=== PATIENT | male | born 1960 | race Caucasian/White ===

== ENCOUNTER 2024-10-03 06:00 | Day surgery (SDC) | payer OTHER, SELFPAY ==
[2024-09-05 12:45] VITALS: BMI 38.9
[2024-09-05 13:01] LABS: Hematocrit 42.9 % (39.0-52.0); Hemoglobin 14.4 g/dL (13.0-18.0); Mean Corp Hgb Conc. 33.6 g/dL (33.0-37.0); Mean Corpuscular Hgb 29.8 pg (27.0-31.0); Mean Corpuscular Volume 88.8 fL (80.0-94.0); Mean Platelet Volume 10.6 fL (7.4-10.4); Platelet Count 239 10^3/uL (130-400); Red Blood Cell Count 4.83 10^6/uL (4.70-6.10); Red Cell Dist. Width 13.4 % (11.5-14.5); White Blood Cell Count 6.1 10^3/uL (4.8-10.8)
[2024-09-05 13:32] LABS: ALT (SGPT) 26 U/L (0-50); AST (SGOT) 23 U/L (17-59); Albumin 4.8 g/dl (3.5-5.0); Alkaline Phosphatase 75 U/L (38-126); Blood Urea Nitrogen 16 mg/dl (9-20); Carbon Dioxide 27 mmol/L (22-30); Chloride 103 mmol/L (98-107); Estimated Creatinine Clearance 93 ml/min; Glucose 100 mg/dl (70-99); Potassium 4.8 mmol/L (3.5-5.1); Sodium 139 mmol/L (135-145); Total Bilirubin 0.8 mg/dl (0.2-1.3); eGFR > 60.00
[2024-09-05 13:34] LABS: Glycohemoglobin (HgbA1c) 5.3 % (4.0-5.6)
[2024-09-05 14:11] VITALS: BMI 38.9
--- NOTE | 2024-09-19 11:47 | VNURNOTE ---
Patient is scheduled for an elective L JOSE ALEJANDRO on 10/03/24 - he is a same day patient with Dr Bernardo . Spoke with patient prior to surgery. Introduced role of [facility] Liaison. Patient reports that he lives with his in a MULTI story home.
There are 2 steps to enter and a flight of steps to the second floor.
There is a powder room on the entry level finance. He currently functions independently. He has a raised toilet seat, hip kit, cane and rolling walker.
PCP is Dr Genaro Joseph.
Discussed [facility] joint protocol and post surgical plans.
Reviewed that he will have VN services initially and will then start outpatient PT.
Patient selects [facility] for his home care needs and is currently deciding on a facility for outpatient PT. No start date yet. Advised him to check with his insurance and schedule outpt PT for beginning of week of October 07. Patient verbalized
understanding.
Patient is in agreement with plan and states that his will be home with him. Advised to bring RW with him day of surgery. Referral placed in [facility].
Plan: [facility] VN per [facility] joint protocol on 10/03 then outpt PT TBD
[2024-10-03] VITALS (22 sets, daily range): BP systolic 72–131; BP diastolic 45–100; PULSE 65; O2SAT 98; BMI 38.9
[2024-10-03] MEDS: NORMOSOL-R/PLASMALYTE-A 1000 IV (06:44)
[2024-10-03] MEDS: TYLENOL 650 MG PO (06:44)
[2024-10-03] MEDS: CELEBREX 200 MG PO (06:44)
--- NOTE | 2024-10-03 07:29 | W.DS.TRANS ---
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
-
Discharge Instructions:
Discharge Diagnosis/Procedures L JOSE ALEJANDRO 10/03/24
Diet As tolerated
Activity With Walker
Additional Activity Adequate hydration, minimize Oxy and wear TEDs
stockings to prevent low blood pressure/
dizziness
Driving Restrictions No driving
Bathing Restrictions OK to Shower
Other Services PT
Instructions:
Stand-Alone Forms: SDS Total Hip and Knee D/C
Changes to Home Medications: Yes
Discharge Medications:
DC Medications w/original date entered in [employer]
atorvastatin 20 mg tablet 20 mg PO DAILY 09/04/24
levothyroxine 100 mcg tablet 100 mcg PO DAILY 09/04/24
meloxicam 15 mg tablet 15 mg PO DAILY 09/04/24
multivit,Ca,min-iron 8 mg-folic acid 200 mcg-lycopene 600 mcg tablet (Centrum Men) 1 tab PO DAILY 09/04/24
omega 1-kal-hhg-fish oil 1,600 mg-500 mg-800 mg/5 mL oral liquid (Fish Oil) 5 ml PO DAILY 09/04/24
semaglutide (weight loss) 0.25 mg/0.5 mL subcutaneous pen injector (Wegovy) 0.25 mg SC QWEEK 09/04/24
tadalafil 5 mg tablet 5 mg PO DAILY 09/04/24
tamsulosin 0.4 mg capsule 0.8 mg PO HS 09/04/24
cefadroxil 500 mg capsule 500 mg PO BID infection prevention #14 caps 09/05/24
dexamethasone 4 mg tablet 4 mg PO BID inflammation #6 tabs 09/05/24
gabapentin 300 mg capsule 300 mg PO HS sleep/pain #10 caps 09/05/24
mupirocin 2 % topical ointment 1 applic topical BID infection prevention #1 tube 09/05/24
ondansetron 4 mg disintegrating tablet 4 mg PO Q6H PRN n/v #20 tabs 09/05/24
oxycodone 5 mg tablet 5 mg PO Q6H PRN 1 tab moderate pain, 2 tabs severe pain #30 tabs 09/05/24
Saccharomyces boulardii 250 mg capsule (Florastor) 250 mg PO BID #1 cap 10/03/24
acetaminophen 500 mg tablet 1,000 mg (2 x 500 mg) PO QID #0 tabs 10/03/24
aspirin 325 mg tablet 325 mg PO DAILY blood clot prevention #1 tab 10/03/24
docusate sodium 100 mg capsule (Colace) 100 mg PO BID stool softner #1 cap 10/03/24
hydrochlorothiazide 12.5 mg capsule 12.5 mg PO DAILY #0 caps 10/03/24
lisinopril 20 mg tablet 20 mg PO DAILY #0 tabs 10/03/24
magnesium hydroxide 400 mg/5 mL oral suspension (Milk of Magnesia) 30 ml PO HS PRN constipation #1 mL 10/03/24
sennosides 8.6 mg tablet (Senokot) 17.2 mg (2 x 8.6 mg) PO BID laxative #2 tabs 10/03/24
Home Medication Changes
cefadroxil 500 mg capsule 500 mg PO BID infection prevention #14 caps 09/05/24
dexamethasone 4 mg tablet 4 mg PO BID inflammation #6 tabs 09/05/24
gabapentin 300 mg capsule 300 mg PO HS sleep/pain #10 caps 09/05/24
mupirocin 2 % topical ointment 1 applic topical BID infection prevention #1 tube 09/05/24
ondansetron 4 mg disintegrating tablet 4 mg PO Q6H PRN n/v #20 tabs 09/05/24
oxycodone 5 mg tablet 5 mg PO Q6H PRN 1 tab moderate pain, 2 tabs severe pain #30 tabs 09/05/24
Saccharomyces boulardii 250 mg capsule (Florastor) 250 mg PO BID #1 cap 10/03/24
acetaminophen 500 mg tablet 1,000 mg (2 x 500 mg) PO QID #0 tabs 10/03/24
aspirin 325 mg tablet 325 mg PO DAILY blood clot prevention #1 tab 10/03/24
docusate sodium 100 mg capsule (Colace) 100 mg PO BID stool softner #1 cap 10/03/24
hydrochlorothiazide 12.5 mg capsule 12.5 mg PO DAILY #0 caps 10/03/24 -PARAMETER
lisinopril 20 mg tablet 20 mg PO DAILY #0 tabs 10/03/24 -PARAMETER
magnesium hydroxide 400 mg/5 mL oral suspension (Milk of Magnesia) 30 ml PO HS PRN constipation #1 mL 10/03/24
sennosides 8.6 mg tablet (Senokot) 17.2 mg (2 x 8.6 mg) PO BID laxative #2 tabs 10/03/24
Pending Results: No
[2024-10-03] MEDS: NORMOSOL-R/PLASMALYTE-A 500 IV (09:30)
[2024-10-03] MEDS: ANCEF 5 IV (11:35)
[2024-10-03] MEDS: TYLENOL 1000 MG PO (14:44)
--- NOTE | 2024-10-03 17:15 | OR.RPT ---
Operative Report
Operative Report
Orthopaedic Surgery Operative Note
DATE OF OPERATION: 10/03/2024
PREOPERATIVE DIAGNOSES: Osteoarthritis, left hip
POSTOPERATIVE DIAGNOSES: Same
OPERATION PERFORMED: Left total hip arthroplasty (13742 with 22 modifier).
SURGEON: Mundo Bernardo MD
WAREHOUSE ENGINEER: Miguelito Scott PA-C who helped with patient and limb positioning and retraction
ANESTHESIA: Spinal
COMPLICATIONS: None.
ESTIMATED BLOOD LOSS: 50 mL.
DRAINS: None
SPECIMEN: None
FINDINGS: Advanced articular cartilage wear on the femoral head and acetabulum.
IMPLANTS:
Biomet G7 Acetabular Shell, cluster hole, size 56
Biomet G7 Highly Crosslinked PE Liner, neutral
Jaylin Acetabular bone screw, 6.5mm x1
Jaylin M/L Taper femoral stem, size 15 with standard neck length and standard offset
Biolox Ceramic Head, size 40mm -3.5
INDICATIONS: The patient presented to my office with debilitating left hip pain due to osteoarthritis. We reviewed the natural history of this problem, as well as the risks, benefits, and alternatives of various treatment options. The patient
exhausted all nonoperative treatment options and wished to proceed with hip replacement surgery. The patient understood the risks which included, but were not limited to, bleeding, infection, failure to relieve pain, more pain than preop, damage to
blood vessels and nerves, need for reoperation, mechanical failure of the implants, wound healing problems, stiffness, instability, blood clot, pulmonary embolism, myocardial infarction, pneumonia, arrhythmia, CVA, and . The patient accepted
these risks and wished to proceed. All questions were answered, and informed consent was obtained.
PROCEDURE IN DETAIL: The patient was identified in the preoperative holding area. The left hip was identified as the operative site. The patient was taken in the operating room and transferred to the operative table. Spinal/General anesthesia
was performed. IV antibiotics and tranexamic acid were administered. The patient was placed in the lateral position with Stulberg hip positioners. Axillary roll was placed. The down leg was well padded. All bony prominences were well padded. The
operative limb was prepped and draped in the usual sterile fashion.
Time out was performed. A posterolateral approach to the hip was used. The skin incision was centered over the greater trochanter. This was taken down sharply through subcutaneous tissues. Meticulous hemostasis was achieved throughout the case with
electrocautery. We split the fascia arthur in line with skin incision. I split the gluteus taryn bluntly. We cauterized all crossing vessels as we split it. I palpated the sciatic nerve and made sure it was well posterior in the operative field. It
was protected throughout the case.
I performed a partial bursectomy to identify the short external rotators. The gluteus medius and minimus were identified and retracted anteriorly. I incised the piriformis tendon and conjoint tendon at their insertions. These were tagged for later
repair. I then performed a trapezoidal capsulotomy. The edges were tagged for later repair. I referenced the cut edge of the capsular flap to 2 fixed points on the greater trochanter for assistance with recreation of limb length and offset. I then
dislocated the hip posteriorly. I performed a femoral neck osteotomy approximately 10 mm above the lesser trochanter, as per preoperative templating. The femoral head measured 51 mm in outer diameter. The distance between the neck cut and center of
the femoral head was measured to be 37.5mm. I placed a curve hohmann retractor over the anterior lip of the acetabulum between the labrum and the anterior hip capsule. A second retractor was placed inferiorly just distal to the transverse acetabular
ligament. Circumferential view of the acetabulum was achieved. I incised the labrum and pulvinar with electrocautery. I started with a 51 mm reamer and reamed down to the medial wall. I then sequentially reamed up to a 55mm reamer. This gave a nice
bed of bleeding bone with excellent column support anteriorly and posteriorly. I impacted the acetabular shell in approximately 40 degrees of abduction and 20 degrees of anteversion. I matched the anteversion of the transverse acetabular ligament. I
also made sure that the anterior rim of the socket was not proud of the anterior wall to minimize the chance of iliopsoas tendinitis. I confirmed the cup was well-seated. I placed 1 ileal screws in the posterior superior quadrant. I then impacted a
neutral liner and confirmed it was well seated with the locking mechanism.
On the femoral side, I use a box osteotome to open the proximal starting point. I found the canal with a Charnley awl and a lateralizing reamer. I then used the Jaylin M/L taper broaches sequentially to prepare the femoral canal. The size 15 came to
a stop at the desired level and had excellent axial and rotational stability. We trialed with a trial ball head. The hip was taken through a complete range of motion. It was noted to be stable in extension without impingement. It was stable in the
position of sleep and in flexion with internal rotation. The limb length and offset were checked compared to the capsular flap and was appropriate. The measured length between the lesser trochanter and center of the femoral head was 40mm.
I removed the trials. I impacted the femoral implant to match the [place] version. It had excellent axial and rotational stability. Trial ball head was placed, and I reduced the hip and took the hip through a complete range of motion. There was no
impingement in external rotation and extension. Position of sleep was stable. At 90 degrees of flexion and slight adduction, the hip could be internally rotated to 90 degrees with no subluxation. I palpated the sciatic nerve, which was tension free
and unharmed. Based on our capsular flap measurement, we had restored the offset and leg length. The trial ball head was removed, and the final ball head was impacted onto a clean and dry Mai taper. The hip was reduced.
A dilute betadine soak was performed for approximately 3 minutes, and then the hip was copiously irrigated. I repaired the capsule, piriformis, and conjoint tendon with #2 Ethibond to drill holes in the greater trochanter. Local anesthetic was
injected. The fascia arthur was closed with #1 PDS in running fashion. The subcutaneous tissues were closed with 2-0 PDS in running fashion. The skin was reapproximated with 3-0 Monocryl subcuticular suture. I placed a Prineo dressing followed by a
Mepilex Ag dressing. The patient awoke from anesthesia without difficulty. Sponge and instrument counts were correct x2 at the end of the case.
I was present and participated in the entire procedure. I checked leg length at the ankles after transfer on the bed which was equal. The patient was sent to the recovery room in stable condition.
Note, 22 modifier was added for complexity due to BMI >35kg/m2 which added about 20 additional minutes for positioning, exposure, and implanting the components.
Roberto Bernardo MD
== END 2024-10-03 15:24 | disposition home or self-care (01) ==
LOC: SDS 06:00
PROVIDERS: ATTENDING PHYSICIAN Orthopaedic Surgery; FAMILY PHYSICIAN Internal Medicine
DX: M16.12 Unilateral primary osteoarthritis, left hip (principal)
CPT/HCPCS: 27130; C1776; C1713; 73502; 80053; 83036; 85027; 87070; 93005; 97162